=== PATIENT | male | born 1980 | race Hispanic/Latino ===

== ENCOUNTER 2017-03-03 10:42 | Day surgery (SDC) | payer OTHER ==
[2017-03-03 11:02] VITALS: BMI 29.5
[2017-03-03] MEDS ORDERED: Bupivacaine 0.5% Inj(30mL) ONE (11:20)
[2017-03-03] MEDS ORDERED: Lidocaine 1% Inj (20ml) ONE ×2 (11:20→12:38)
[2017-03-03 11:30] VITALS: RESP 18
[2017-03-03] MEDS ORDERED: Midazolam 2 MG/2 ML VIAL ONE (11:39)
[2017-03-03] MEDS ORDERED: Propofol 10 mg/ml Inj (20 ML) ONE (11:39)
[2017-03-03] MEDS ORDERED: Lactated Ringer's 1,000 ML IV ONE ×2 (11:53→15:00)
[2017-03-03] MEDS ORDERED: methylPREDNISolone Depo 80 mg/ml Inj ONE (12:38)
[2017-03-03] MEDS ORDERED: HYDROmorphone 0.5 mg/0.5 ml ISec IVP PRN (13:25)
--- NOTE | 2017-03-03 13:25 | PCM.SURG1 ---
Surgeon's Initial Post Op Note - Surgeon's Notes Surgeon: Dr. Rao Coil Maker: Dr. Grimm PGY-1 Type of Anesthesia: General LMA Anesthesia Administered By: Dr. Cruz Pre-Operative Diagnosis: right wrist TFCC tear and right 4th trigger finger Operative Findings: see operative report Post-Operative Diagnosis: same Operation Performed: arthroscopic debridement of right wrist and release of right 4th trigger finger Specimen/Specimens Removed: none Estimated Blood Loss: EBL {In ML}: 1 Blood Products Given: N/A Drains Used: No Drains Post-Op Condition: Good Date of Surgery/Procedure: 03/03/17 Time of Surgery/Procedure: 12:00
[2017-03-03] MEDS ORDERED: Oxycodone/Acetaminophen 5/325 mg Tab PO PRN ×2 (13:27)
[2017-03-03 16:12] VITALS: BP 121/74; PULSE 71; TEMP 98.1; O2SAT 100
--- NOTE | 2017-03-03 16:46 | OP ---
PROCEDURE DATE: 03/03/2017 SURGEON: Guero Rao MD GRAIN MIXER: Brigitte Grimm, resident. PREOPERATIVE DIAGNOSES: 1. Right wrist triangular fibrocartilage complex tear. 2. Right 4th digit trigger finger. POSTOPERATIVE DIAGNOSES: 1. Right wrist partial triangular fibrocartilage complex tear. 2. Right wrist synovitis. 3. Right wrist 4th digit stenosing flexor tenosynovitis. PROCEDURES: 1. Right wrist arthroscopy with triangular fibrocartilage complex debridement, 52069. 2. Right wrist diagnostic arthroscopy, 72984. 3. Right wrist arthroscopic synovectomy, 77377. 4. Right 4th digit trigger finger release, 40032. ANESTHESIA: General anesthesia. DRAINS: None. COMPLICATIONS: None. DISPOSITION: Stable to recovery room. BLOOD LOSS: None. OPERATIVE FINDINGS: A central tear of the triangular fibrocartilage complex that was amenable to marsha ridement, intact scapholunate interosseous ligament, a significant synovitis within the ulnar and rad ial aspects of the radiocarpal joint. 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 The patient's injuries are the direct result of his work accident. He has failed con servative therapy and elected to proceed with the above surgery. Risks and benefits of the procedure were explained. Risks included, but not limited to, bleeding, infection, tendon, nerve, vessel inju ry, instability and chronic pain, stiffness, potential need for additional surgery in the future. Th e patient understood the above risks and elected to proceed. Informed consent was obtained. DESCRIPTION OF PROCEDURE: The patient was taken to the operating room and [facility] supine [facility] table. After adequate general anesthesia was given and antibiotics administered, a well-pa dded nonsterile tourniquet was placed on the patient's right upper extremity. The right upper extrem ity was then prepped and draped in standard surgical fashion. The extremity was then placed in a [facility] traction tower in a standard fashion. Finger trials were placed on the index and long fingers. All bony prominences were well padded. Approximately 15 pounds of digital traction was applied. T he proposed portals were marked out. This was a 3-4 portal as well as the 4-5 portal and a 6U portal . An incision was made through the skin only. Careful blunt dissection was performed down the capsu le. A 22-gauge needle was then used to insufflate the radiocarpal joint with normal saline. The jose j nt trocar was then used to enter the radiocarpal joint and the camera was then placed in center troca r and the standard diagnostic arthroscopy was performed. A visualization of the distal radius articu lar surface revealed the lunate and scaphoid fossa to be in excellent condition. The articular surfa ce of the lunate and scaphoid was also intact without any evidence of injury. The volar ligamentous structures were next visualized. The radioscaphocapitate ligament was intact without any evidence of injury, as well as the short and long radial lunate ligaments. The ligament of [place] was visualize d and was without any evidence of injury. Just dorsal to the scapholunate interosseous ligament was visualized. It was visualized from its volar aspect all the way to the dorsal aspect. There was no evidence of injury or attenuation noted. A significant synovitis was seen in the radial and ulnar gu tters. Attention was directed ulnarly. The 4-5 portal was created in a similar fashion. A probe wa s placed into the radiocarpal joint. The scapholunate interosseous ligament was probed and confirmed to be intact. The ulnar insertion of the triangular fibrocartilage complex was probed and was in e xcellent condition. There was a volar radial partial tear of the TFCC complex. Good trampoline sign was present. It was therefore determined that a synovectomy and debridement of the TFCC would be pe rformed. The small joint full radius resector was placed inside the joint and a total synovectomy was performe d of the radial and ulnar gutters of the wrist, as well as dorsal aspect of the wrist. Once this was performed, further debridement was performed with ArthroCare wand. The tear was debrided to a stabl e border. There was no clicking, flapping, or instability of the TFCC complex. There was significan t healthy, bleeding tissue. Next, traction was removed from the wrist and the was removed. Work was begun on releasing the trigger finger. With a sterile marking pen, the proposed procedure was outlined, which was a longit udinal incision extending from the distal palmar crease to the base of the digit. The incision was m chris and superficial veins were cauterized by blunt and gentle dissection through subcutaneous tissues . The neurovascular bundles were from the underlying flexor mechanism sharply and the A1 p ulley was identified and was thought to be markedly fibrotic. With a scalpel, this marcie was comple tely incised with care taken to preserve the critical A2 marcie. The tendons were lifted from their bed and local tenosynovectomy was performed. The wound was irrigated and hemostasis was achieved wit h cautery. The skin was closed with 4-0 nylon interrupted mattress sutures. The portal sites were a lso closed with 4-0 nylon interrupted sutures. Tourniquet was deflated. The patient was placed with sterile dressing of Xeroform, fluffs, 4 x 4's, and a long arm plaster splint. He tolerated the procedure well and will follow up in my office in 2 weeks for wound check. Guero Rao M.D. cc: [id number] TT: 03/03/2017 16:46:08 mayank
== END 2017-03-03 16:20 | disposition home or self-care (01) ==
LOC: H.OPSURG 10:42
PROVIDERS: ATTEND Orthopaedic Surgery
DX: S63.591A Other specified sprain of right wrist, initial encounter (principal); X58.XXXA Exposure to other specified factors, initial encounter

== ENCOUNTER 2018-05-04 08:39 | Day surgery (SDC) | payer OTHER ==
[2018-04-30 11:26] VITALS: BMI 28.8
[2018-05-04] MEDS ORDERED: Lactated Ringer's 1,000 ML IV ONE ×2 (10:00→13:15)
[2018-05-04] MEDS ORDERED: ceFAZolin IV 1 gm in Dextrose 2 GM/100 ML BAG IVPB ONE (11:03)
[2018-05-04] MEDS ORDERED: Midazolam 2 MG/2 ML VIAL IV ONE ×2 (11:20→11:50)
[2018-05-04] MEDS ORDERED: Ropivacaine 0.5% 30ML IV ONE (11:27)
[2018-05-04] MEDS ORDERED: Lidocaine 1% 5ml Abboject IV ONE ×2 (11:34→11:41)
[2018-05-04] MEDS ORDERED: Lidocaine 2% Jelly (5 ml) TOP ONE (11:34)
[2018-05-04] MEDS ORDERED: Propofol 10 mg/ml Inj (20 ML) ONE (11:42)
[2018-05-04] MEDS ORDERED: Dexamethasone 4 mg/1 ml ONE (13:17)
[2018-05-04] MEDS ORDERED: Lidocaine 1% Inj (20ml) INFIL ONE (13:25)
[2018-05-04] MEDS ORDERED: ePHEDrine 50 mg/ml Inj ONE (13:42)
[2018-05-04] MEDS ORDERED: Liquid Adhesive TOP ONE (14:24)
--- NOTE | 2018-05-04 14:46 | PCM.SURG1 ---
Surgeon's Initial Post Op Note - Surgeon's Notes Surgeon: Guero Rao MD Geochemist: Van Valverde PA-C Type of Anesthesia: General Endo, General LMA Pre-Operative Diagnosis: Right shoulder partial RTC tear Operative Findings: see op report Post-Operative Diagnosis: same as pre-op dx Operation Performed: Right shoulder arthroscopy, rotator cuff repair type I, subacromial decompression, extenisive debridement Specimen/Specimens Removed: none Estimated Blood Loss: EBL {In ML}: 4 Date of Surgery/Procedure: 05/04/18 Time of Surgery/Procedure: 13:00
[2018-05-04] MEDS ORDERED: Oxycodone/Acetaminophen 5/325 mg Tab PO PRN (14:48)
[2018-05-04] MEDS ORDERED: DiphenhydrAMINE 50 mg/ml Inj IVP PRN (14:49)
[2018-05-04] MEDS ORDERED: HYDROmorphone 1 mg/ml ISec IVP PRN (14:49)
--- NOTE | 2018-05-04 14:52 | PCM.ANESB1 ---
Interscalene Block - Brachial Plexus Date of Procedure: 05/04/18 Anesthesiologist: Lake Pre-Procedure Diagnosis: right shoulder internal derangement Post-Procedure Diagnosis: right rotator cuff tear Procedure Performed: Interscalene Block of Brachial Plexus Right - Procedure Interscalene Block of Brachial Plexus: This procedure was explained to the patient that it is for post-operative pain management. Consent was obtained after a thorough discussion with the patient regarding the benefits and possible complications of local anesthetic block of the Brachial Plexus at the Interscalene area. The patient was brought to the Operating Room and standard monitors were applied. Time out was held with the circulating nurse to confirm the correct surgery and appropriate block. After applying Oxygen by nasal cannula and administering IV Sedation, the patient's head was gently rotated away from the __right____operative shoulder and the anterior scalene groove was carefully palpated. The ultrasound transducer was then applied to the skin in the transverse plane and the brachial plexus was visualized lateral to the carotid artery and in between the anterior and middle scalene muscles. After identification,the anterior lateral portion of the neck was prepped with Betadine solution three times and Lidocaine 1% was injected subcutaneously for topical analgesia. At this point, a # 22 gauge Stimuplex 2 inches insulated needle was inserted into the interscalene groove and directed in a caudal and midline direction. The needle was inserted lateral to the ultrasound transducer in-plane towards the brachial plexus in a [id number] direction. Needle advancement was performed carefully under direct ultrasound visualization. Nerve stimulator was used and twitched of the affected extremity including the hand brachialis muscles, biceps and the deltoid was obtained at a current of __0.4___MA. After repeated negative aspiration,__30___cc of_0.5%____,_ropivicaine were injected and this was followed with cc of % . Under ultrasound guidance the local anesthetics were observed surrounding the roots of the brachial plexus. The needle was removed intact and sterile dressing was applied. The patient had stable vital signs, was conscious and in no apparent distress. The patient tolerated the interscalene block of the bracheal plexus well with stable vital signs and was prepared for subsequent surgery.
[2018-05-04 15:52] VITALS: TEMP 97.5; O2SAT 98
[2018-05-04 16:04] VITALS: BP 136/79; PULSE 72; RESP 18
--- NOTE | 2018-05-07 09:10 | OP ---
Copied To: Guero Rao MD Attending MD: Guero Rao MD PROCEDURE DATE: 05/04/2018 SURGEON: Guero Rao MD RESIDENTIAL BUILDING INSPECTOR: Van Valverde PA-C PREOPERATIVE DIAGNOSIS: Right shoulder partial rotator cuff tear. POSTOPERATIVE DIAGNOSES: 1. supraspinatus rotator cuff tear. 2. Extensive synovitis of the shoulder. 3. Superior labrum anterior and posterior tear type 1 PROCEDURES: 1. Arthroscopic shoulder rotator cuff repair with Arthrex BioComposite anchor, 35426. 2. Extensive arthroscopic shoulder debridement, 81887. 3. Synovectomy of the shoulder, 20448. 4. Subacromial decompression with acromioplasty, 41046. ANESTHESIA: General. BLOOD LOSS: Minimal. DRAINS: None. COMPLICATIONS: None. INDICATIONS: The patient's shoulder injuries requiring surgery are the result of an accident/incident that occurred at work. The patient was correctly identified in the holding area and the right shoulder was marked with the surgeon's initials. The patient was transported to the operating room and placed in the supine position and regional anesthesia was obtained. A preoperative orthopedic examination revealed a passive range of motion of 180 degrees of forward elevation, 90 degrees of external rotation, and 170 degrees of abduction. Stability examination revealed no instability. The patient was then placed in a beach chair position utilizing the beach chair positioning device. The patient's head was stabilized and the indicated upper extremity was prepped and draped in the standard surgical fashion. The anatomic structures were outlined with a skin marker, and 1% lidocaine with epinephrine was injected into the posterior, anterior, and lateral portal areas. A #21-gauge spinal needle was placed in the glenohumeral joint from the posterior portal and 10 mL of sterile saline was injected into the glenohumeral joint. Return of fluid indicated correct needle placement into the joint. The needle was then withdrawn and a #11 blade was used to make a 1-cm incision at the posterior portal site. Next, the arthroscopic blunt trocar was inserted into the glenohumeral joint. A #21-gauge spinal needle was placed through the anterior rotator interval, and the anterior portal was made with a #11 blade after the spinal needle was withdrawn. A 7-mm cannula was then inserted after the skin incision was made and the arthroscopic probe was then used to examine the internal structures of the glenohumeral joint. With the shoulder in abducted and externally rotated position, the articular surface of the rotator cuff was visualized. The arthroscope and probe were then switched from posterior to anterior. The posterior labrum, posterior capsule, and biceps anchor reflection was then inspected with the arthroscope in the anterior portal position. Examination of the glenohumeral joint revealed: 1. SLAP type 1 tear with extensive labral fraying. 2. Under surface tear of the supraspinatus tendon. 3. Extensive synovitis. The full radius shaver was used to mechanically debride loose chondral edges of the labrum to a stable border. Extreme care was taken to not disrupt the adjacent chondral surface. The edge of the debrided area was probed to ensure chondral stability. Excessive glenohumeral synovitis was cleared with a 4.0 mm full radius shaver. The hypertrophic, erythematous synovium was resected. Hemostasis was maintained with the radiofrequency device. The 4.0 mm straight shaver was introduced through the anterior portal, and the type 1 SLAP lesion was debrided. Extreme care was taken to protect the chondral surfaces as well as the substance of the biceps tendon. At this point, the arthroscope was withdrawn from the glenohumeral joint and subacromial space was then entered using a blunt trocar. Gentle resistance sweeping against the coracoacromial ligament confirmed proper placement of the sheath and the arthroscope was inserted. A 1-cm incision was made at the inferolateral acromial area to create the lateral portal. Examination of the subacromial space revealed: 1. Subacromial bursitis. 2. Synovitis. 3. Subacromial spur. Visualization of the subacromial space was difficult due to excessive bursitis. A bursectomy was performed using a combination of radiofrequency device as well as a 4.0-mm full radius motorized shaver. The soft tissue on the undersurface of the acromion was debrided utilizing the 4.0-mm full radius shaver and the radiofrequency device was used for hemostasis. At this point, the coracoacromial ligament was released with the radiofrequency device and the acromial branch of the thoracoacromial artery was coagulated with the same instrument. Subacromial decompression was performed with a 4.0-mm conical homero using both the medial portal and the "cutting-block" precision acromioplasty technique from the posterior portal. The undersurface of the acromion was resected to a flat, smooth surface to allow unrestricted excursion of the rotator cuff. After adequate subacromial decompression, attention was then turned to the partial thickness rotator cuff tear, which was greater than 50% of the supraspinatus thickness. The tear site had been tagged with FiberWire from the articular compartment, and the suture was easily visualized after adequate bursectomy had been performed. It was noted that the tear did not propagate through the supraspinatus; however, the tear was nearly full thickness with only few fibers remaining intact. Decision was made to complete the tear and proceed with repair. An auxiliary lateral portal was placed 2 cm posterior to the original lateral portal after a correct "-man's angle" was determined using a transdeltoid #21-gauge spinal needle. Next, the greater tuberosity was gently debrided with a combination of the 4.0-mm mechanical shaver and radiofrequency device, and the bone was denuded to a bleeding surface using the 4.0-mm homero. The lateral margin of the rotator cuff tear was debrided to a smooth and stable tendon surface using the 4.0-mm shaver. A FiberTape was passed through the torn edges of supraspinatus tendon in mattress fashion. It was then loaded onto a 4.5-mm Arthrex double loaded SwiveLock suture anchor which was placed with the proper "-man's angle" into the greater tuberosity. The arm was abducted to 70 degrees, and the leading edge of the cuff was drawn to its proper insertion on the greater tuberosity. The shoulder was put through a ROM, and the rotator cuff repair was noted to be stable through a ROM of 130/50. The ends of the sutures were then cut. The subacromial space was then irrigated with sterile saline, and closure was instituted with sutures. A dressing was placed consisting of Xeroform, 4x4's, ABD pads, and tape. The patient was placed in a sling with an ABD pad in the axilla. The patient was then placed in a supine position and extubated without incident. The patient was transferred to the recovery room in stable condition, having tolerated the procedure well. The patient is given appropriate postop rehab protocol. Postoperatively, the patient will be started on Phase I shoulder rehab as well as Codman's exercises and will advance rapidly to regain full range of motion and optimize shoulder function. Followup with me in 14 days in the office. During this procedure, I was assisted by Van Valverde PA-C, who assisted in positioning the patient on the operating room table as well as transferring the patient from the operating room table to the recovery room stretcher. In addition, Van Valverde PA-C, assisted me during the actual operative procedure by positioning the patient's extremity to allow for easier arthroscopic access to all areas of the joint. The presence of Van Valverde PA-C, as my operative commercial lending assistant, was medically necessary to ensure the utmost safety of the patient in the pre, intra-, and postoperative periods. Guero Rao MD LEXI
== END 2018-05-04 16:15 | disposition home or self-care (01) ==
LOC: H.OPSURG 08:39
PROVIDERS: ATTEND Orthopaedic Surgery
DX: S43.491A Other sprain of right shoulder joint, initial encounter (principal); M65.811 Other synovitis and tenosynovitis, right shoulder; X58.XXXA Exposure to other specified factors, initial encounter; M75.111 Incomplete rotator cuff tear or rupture of right shoulder, not specified as traumatic
CPT/HCPCS: 29823; 29826; 29827; C1713; J0690; J1100; J1885; J2175; J2250; J2405; J2704; J3010; J7030; J7120